=== PATIENT | female | born 1955 | race Hispanic/Latino ===

== ENCOUNTER 2021-10-04 05:51 | Day surgery (SDC) | payer MEDICARE ==
--- NOTE | 2021-10-02 16:48 | Anesthesia Consultation ---
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; Protein S deificiency) SOB: Yes (JOSHI) Hx Sleep Apnea: Yes (DX SLEEP APNEA,NO CPAP, WEARS SPECIAL MADE) - Cardiovascular System Hx Hypertension: No - Central Nervous System Hx Seizures: Yes (LAST SEIZURE 3 MONTHS AGO) CVA: Yes (X 2 (1997), (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
[2021-10-04] MEDS ORDERED: LACTATED RINGERS 1,000 ML IV SCH (06:00)
[2021-10-04] MEDS ORDERED: MIDAZOLAM 2 MG/2 ML INJ IV NR (06:00)
[2021-10-04] MEDS ORDERED: BUPIVACAINE/PF (0.25%) 2.5 MG/ML 30 ML VIAL INFILTRATI ONE (07:14)
[2021-10-04] MEDS ORDERED: GENTAMICIN 40 MG/ML VIAL 2 ML ONE (07:14)
[2021-10-04] MEDS ORDERED: LIDOCAINE 1%/EPINEPHRINE 1:100,000 VIAL (20 ML) INFILTRATI ONE (07:15)
[2021-10-04] MEDS ORDERED: THROMBIN (RECOMBINANT) 5,000 UNIT VIAL TP ONE (07:15)
[2021-10-04] MEDS ORDERED: ROCURONIUM 50 MG/5 ML INJ IV ONE (07:29)
[2021-10-04] MEDS ORDERED: HYDROmorphone 1 MG/1 ML INJ ONE (07:29)
[2021-10-04] MEDS ORDERED: ONDANSETRON 4 MG/2 ML INJ ONE (07:29)
[2021-10-04] MEDS ORDERED: LIDOCAINE MPF (2%) 20 MG/1 ML VIAL 5 ML ONE (07:29)
[2021-10-04] MEDS ORDERED: propofoL 200 MG/20 ML VIAL IV ONE (07:29)
[2021-10-04 07:31] LABS: INR 0.9 (0.87-1.13)
--- NOTE | 2021-10-04 07:44 | History and Physical Report ---
History of Present Illness Date of examination: 10/04/21 Chief complaint: Surgical admit History of present illness: Nan Machado is a 66 y/o F w/ protein S deficiency. She is here today for SCS removal. She denies present concerns. She has been off her Eliquis since Thursday, 09/30. Past History Past Medical History: other (protein S deficiency) Medications and Allergies Allergies Allergy/AdvReac Type Severity Reaction Status Date / Time codeine Allergy Rash Verified 09/26/21 15:50 latex Allergy Anaphylaxis Verified 09/26/21 15:50 meperidine [From Demerol] Allergy Anaphylaxis Verified 09/26/21 15:50 Penicillins Allergy Rash Verified 09/26/21 15:50 promethazine [From Phenergan] Allergy Anaphylaxis Verified 09/26/21 15:50 Sulfa (Sulfonamide Allergy Rash Verified 09/26/21 15:50 Antibiotics) Home Medications Medication Instructions Recorded Confirmed Last Taken Type Apixaban [Eliquis] 5 mg PO DAILY 09/26/21 09/26/21 Unknown History Aspirin [Vazalore] 81 mg PO DAILY 09/26/21 09/26/21 Unknown History Atorvastatin (Nf) [Lipitor (Nf)] 10 mg PO QHS 09/26/21 09/26/21 Unknown History Furosemide [Lasix] 20 mg PO QDAY 09/26/21 09/26/21 Unknown History Levothyroxine [Synthroid] 50 mcg PO QAM 09/26/21 09/26/21 Unknown History Potassium Citrate [Potassium 20 meq PO BID 09/26/21 10/02/21 Unknown History Citrate ER] Venlafaxine HCl [Venlafaxine] 150 mg PO DAILY 09/26/21 10/02/21 Unknown History Albuterol Sulfate [Albuterol 0.63% 0.63 mg IH TID PRN 10/02/21 10/02/21 Unknown History NEBS] Albuterol Sulfate [Proventil Hfa] 2 puff IH PRN PRN 10/02/21 10/02/21 Unknown History Amitriptyline [Elavil] 10 mg PO QHS 10/02/21 10/02/21 Unknown History Baclofen [Lioresal] 10 mg PO TID 10/02/21 10/02/21 Unknown History Cholecalciferol (Vitamin D3) 50,000 unit PO QWEEK 10/02/21 10/02/21 Unknown History [Vitamin D3 50,000UNIT CAP] Denosumab (Nf) [Prolia (Nf)] 60 mg SUB-Q [id number] 10/02/21 10/02/21 Unknown History Docusate Sodium [Colace] 300 mg PO QHS 10/02/21 10/02/21 Unknown History EPINEPHrine [Epinephrine 1 mg IJ PRN PRN 10/02/21 10/02/21 Unknown History Professional Kit] Fluticasone/Umeclidin/Vilanter 1 each IH DAILY 10/02/21 10/02/21 Unknown History [Trelegy Ellipta 100-62.5-25] Gabapentin [Neurontin] 300 mg PO TID 10/02/21 10/02/21 Unknown History Ibuprofen [Motrin] 800 mg PO Q8HR PRN 10/02/21 10/02/21 Unknown History Oxycodone HCl/Acetaminophen 1 each PO PRN PRN 10/02/21 10/02/21 Unknown History [Oxycodone-Acetaminophen 10-325] Pantoprazole [Protonix] 40 mg PO BID 10/02/21 10/02/21 Unknown History Sucralfate [Carafate] 1 gm PO QID 10/02/21 10/02/21 Unknown History Verapamil HCl [Verelan] 360 mg PO DAILY 10/02/21 10/02/21 Unknown History busPIRone [Buspar] 180 mg PO TID 10/02/21 10/02/21 Unknown History levETIRAcetam [Keppra TAB] 500 mg PO BID 10/02/21 10/02/21 Unknown History Active Meds: Active Medications Clindamycin HCl (Cleocin 900 Mg/50 Ml) 900 mg in 50 mls @ 100 mls/hr IV PREOP PEGGY; Protocol Stop: 10/04/21 23:01 Lactated Ringer's (Lactated Ringers) 1,000 mls @ 125 mls/hr IV DIRECT PEGGY Midazolam HCl (Midazolam 2 Mg/2 Ml Inj) 2 mg IV PREOP NR Stop: 10/04/21 21:00 Review of Systems All systems: negative (what is specified in HPI) Physical Examination - Vital Signs Vital Signs: Vital Signs Temp Pulse Resp BP Pulse Ox 98.2 F 62 20 152/69 98 10/02/21 11:20 10/02/21 11:20 10/02/21 11:20 10/02/21 11:20 10/02/21 11:20 - Physical Exam Narrative exam: seen and examined no acute distress NC/AT RRR breathing non-labored abdomen soft no cyanosis or clubbing A&Ox3 CNII-XII intact MAEW sensation intact bilateral paramedian thoracic incisions well healed R lower lumbar generator pocket Assessment and Plan 66 y/o F w/ failed SCS implant -to OR for removal of SCS electrodes and generator
[2021-10-04] MEDS ORDERED: BACITRACIN ZINC OINT 28.4 GM TP ONE (07:46)
[2021-10-04] MEDS ORDERED: VANCOMYCIN 1000 MG INJ ONE (07:46)
[2021-10-04 13:18] VITALS: BP 128/70
== END 2021-10-04 05:52 | disposition home or self-care (01) ==
LOC: OR 05:51
PROVIDERS: ATTEND Psychiatry & Neurology Neurology
DX: T85.192A Other mechanical complication of implanted electronic neurostimulator of spinal cord electrode (lead), initial encounter (principal); M54.59 Other low back pain; Z53.8 Procedure and treatment not carried out for other reasons; E78.00 Pure hypercholesterolemia, unspecified; J45.909 Unspecified asthma, uncomplicated; K21.9 Gastro-esophageal reflux disease without esophagitis; E03.9 Hypothyroidism, unspecified; F41.9 Anxiety disorder, unspecified; F32.9 Major depressive disorder, single episode, unspecified; Z79.899 Other long term (current) drug therapy; Z98.890 Other specified postprocedural states; Z20.822 Contact with and (suspected) exposure to COVID-19; Z88.0 Allergy status to penicillin; Z88.5 Allergy status to narcotic agent; Z91.040 Latex allergy status; Z88.8 Allergy status to other drugs, medicaments and biological substances
CPT/HCPCS: 36415; 82962; 85610; 85730; J1170; J2250; J2405; J2704; J3490; J7120; J7502; U0003; J1580; J3370